=== PATIENT | male | born 1960 | race Caucasian/White ===

== ENCOUNTER 2016-03-05 13:05 | Emergency (ER) | payer OTHER ==
[2016-03-05 13:29] VITALS: BP 149/98; PULSE 86; TEMP 98.3
[2016-03-05 13:30] VITALS: BMI 23.6
--- NOTE | 2016-03-05 13:38 | EDPRACDOC ---
- General Information Stated Complaint: MED REFILL Time Seen by Provider: 03/05/16 13:32 Information Source: Patient Home Medications: Home Medications Ketorolac Tromethamine 10 mg PO Q8H PRN #15 tab 03/05/16 - History of Present Illness HPI: Pt states he is out of pain medication for back pain after spinal decompression. Context: Reports: Ran out of Medication Medication for: Reports: Pain Pain: Reports: Moderate ED Past Medical History - History Reviewed Yes Nurses notes reviewed and agree except as marked - Social Medical History Smoking Status: Heavy tobacco smoker (5 or more cigarettes/day or daily pipe/ cigar) ETOH: None Substance Abuse: None EDM Review of Systems - Review of Systems Constitutional: No Symptoms Reported. negative: Fever, Chills, Weakness, Fatigue, Loss of Appetite Respiratory: No Symptoms Reported. negative: Cough, Brassy Cough, Barky Cough, Shortness of Breath, Wheezing, Hemoptysis Cardiovascular: No Symptoms Reported. negative: Chest Pain, Palpitations, Syncope, Edema, Orthopnea, PND, Skin Mottling, Cyanosis Gastrointestinal: No Symptoms Reported. negative: Pain, Constipation, Nausea, Vomiting, Diarrhea, Melena, Formula Intolerance Genitourinary: No Symptoms Reported. negative: Dysuria, Hematuria, Frequency, Discharge, Bleeding, Testicular Pain, Neurological: Numbness Musculoskeletal: Back Integumentary: No Symptoms Reported. negative: Itching, Rash, Bruising, Wound Allergic/Immunologic: No Symptoms Reported. negative: Hives, Itching Hematologic: No Symptoms Reported. negative: Lymphadenopathy, Easy Bruising, Easy Bleeding Psychiatric: No Symptoms Reported. negative: Anxiety, Depression, Hallucinations, Insomnia, Suicidal - Physical Exam Constitutional: Alert Oriented to: Time, Person, Place Last recorded Vital Signs: Last Vital Signs Temp 98.3 F 03/05/16 13:28 Pulse 86 03/05/16 13:28 Resp 18 03/05/16 13:28 BP 149/98 03/05/16 13:28 Pulse Ox 98 03/05/16 13:28 Oxygen Pulse Oxygen Saturation 98 O2 Device Oxygen Flow Rate Fraction of Inspired Oxygen ( FIO2) - HEENT Head: Normal ( normocephalic) Neck: Normal (FROM, trachea at midline) - Respiratory/Cardiovascular Respiratory: Normal - CTA (BBS clear to auscultation without adventitious sounds ) Cardiovascular: Normal (RRR without murmur, gallop or rub) - Musculoskeletal Back: Normal (Non-Tender) Extremities: Normal (Normal tone, Pulses 2+ No cyanosis or edema, FROM) - Integumentary Skin: Normal, Warm, Dry Lymphatics: Normal (no adenopathy) - Neurologic Memory Impaired: Normal Motor Function: Normal (Normal tone, Pulses 2+ No cyanosis or edema, FROM) Mood Description: Normal Perception: Normal - Differential Diagnosis Medication Refill - Additional Information Pt had gabapentin filled 02/28 #90, 02/23 #90, xanax 02/13 #90, Oxy 10mg 02/13 # 45 Informed pt that the ED will not be filled chronic pain medication that he must follow up with PCP or surgeon. Decision Time to Discharge: 13:37 - Departure Disposition: Home Condition: Good Final Diagnosis: Medication refill Instructions: Medicine Refill (ED) Education/Counseling Given To: Patient, Family Member Education/Counseling Given Regarding: Diagnosis, Treatment, Follow Up Referrals: Jm Adhikari MD [Primary Care Provider] - One Week Prescriptions: Ketorolac Tromethamine 10 mg PO Q8H PRN #15 tab PRN Reason: Pain Additional Instructions: Follow up with surgeon for continued pain management.
== END 2016-03-05 13:52 | disposition home or self-care (01) ==
LOC: EDMC 13:05
DX: Z76.0 Encounter for issue of repeat prescription (principal); F17.200 Nicotine dependence, unspecified, uncomplicated
CPT/HCPCS: 99283